=== PATIENT | male | born 1950 | race Caucasian/White ===

== ENCOUNTER 2017-07-26 21:29 | Inpatient (IN) | payer OTHER ==
[~2017-07-26] VITALS: Ht 162.6 cm; Wt 77.9 kg
[~2017-07-26 21:29] MED LIST: BACTRIM,SEPT1 TABLET PO; Bactrim,Septra DS 80 PO; Cleocin PO; DESYREL 150 MG150 MG PO; Desyrel PO; Dilaudid PO; GABAPENTIN600 MG PO; Habitrol,Nicoderm CQ TD; KEFLEX500 MG PO; LEXAPRO; LEXAPRO20 MG PO; LISINOPRIL10 MG PO; NAPROSYN250 MG PO; NEXIUM20 MG PO; NEXIUM40 MG PO; OXYCODONE-ACET1 EACH PO; PERCOCET 10/1 TABLET PO; PERCOCET 5/31 TABLET PO; PERCOCET 7.5-31 EACH PO; PRAVACHOL40 MG PO; PREVACID30 MG PO; PROAIR HFA8.5 GM IH; PROTONIX40 MG PO; Percocet 5/325,Endoc PO; TIZANIDINE HCL4 MG PO; TRAZODONE PO; Tylenol Arthritis Ex PO; Tylenol Regular Stre PO; WELLBUTRIN PO; [UNRECOGNIZED DRUG - REMARK]
[2017-07-27 08:00] VITALS: BP 144/74
[2017-07-27 15:11] VITALS: BP 134/89
[2017-07-27 19:23] VITALS: BP 111/65
[2017-07-27 23:34] VITALS: BP 108/59
[2017-07-28 01:03] VITALS: BP 93/53
[2017-07-28 03:11] VITALS: BP 133/70
[2017-07-28 07:02] LABS: HEMATOCRIT 42.2 % (38.0-50.0); MCV 92.5 FL (86-99)
[2017-07-28 07:24] LABS: CHLORIDE 104 MEQ/L (99-109); CREATININE 0.8 MG/DL (0.6-1.3); GFR ESTIMATE (CALCULATED) > 59 mL/min/ (58.99-99999); GLUCOSE 138 mg/dL (70-99); POTASSIUM 3.8 MEQ/L (3.7-5.4); SODIUM 137 MEQ/L (136-147); UREA NITROGEN (BUN) 14 mg/dL (9-23)
[2017-07-28 07:59] VITALS: BP 150/71
[2017-07-28] MEDS ORDERED: OXYCODONE HCL5 MG PO (10:46)
[2017-07-28] MEDS ORDERED: OXYCONTIN10 MG PO (10:48)
[2017-07-28 11:05] VITALS: BP 142/70
[2017-07-28 17:10] VITALS: BP 149/65
== END 2017-07-28 17:52 | disposition home or self-care (01) | DRG 483 ==
LOC: ENRESERV 21:29 → 3EAST 07-27 06:48 → 2SOUTH 07-27 06:48 → ENRESERV 07-27 14:21 → 3EAST 07-27 14:40 → 2SOUTH 07-27 16:08 → 3EAST 07-28 17:52
PROVIDERS: Orthopaedic Surgery
PROC: 0RRK00Z Replacement of Left Shoulder Joint with Reverse Ball and Socket Synthetic Substitute, Open Approach (ICD-10-PCS; principal; 2017-07-27)
PROC: 3E0T3BZ Introduction of Anesthetic Agent into Peripheral Nerves and Plexi, Percutaneous Approach (ICD-10-PCS; 2017-07-27)
DX: M19.012 Primary osteoarthritis, left shoulder (principal); M75.122 Complete rotator cuff tear or rupture of left shoulder, not specified as traumatic; M65.9 Synovitis and tenosynovitis, unspecified; J44.9 Chronic obstructive pulmonary disease, unspecified; I10 Essential (primary) hypertension; F17.200 Nicotine dependence, unspecified, uncomplicated; K21.9 Gastro-esophageal reflux disease without esophagitis; E78.5 Hyperlipidemia, unspecified; Z96.611 Presence of right artificial shoulder joint; Z88.6 Allergy status to analgesic agent; Z88.5 Allergy status to narcotic agent
CPT/HCPCS: 73020; 80048; 85014; 85018; 90686; 94760; 94799; 99202; C1713; J0131; J0330; J0690; J1100; J1170; J2250; J2405; J2710; J2795; J3010; J3370; J7050; J7120